=== PATIENT | male | born 1945 | race Caucasian/White ===

== ENCOUNTER 2017-11-04 17:25 | Inpatient (IN) ==
[2017-11-04] MEDS ORDERED: Naloxone 0.4 MG/ML INJ IVP PRN (22:35)
[2017-11-04] MEDS ORDERED: *HR* HYDROcodone/Acet 5/325 mg TABLET PO PRN (22:41)
[2017-11-04] MEDS ORDERED: Acetaminophen 325 MG TABLET PO PRN (22:41)
[2017-11-04] MEDS ORDERED: hydrALAZINE 10 MG TABLET PO PRN (22:48)
[2017-11-04] MEDS ORDERED: Ipratropium/Albuterol Neb 3 ML IH PRN (22:50)
--- NOTE | 2017-11-04 23:09 | Internal Med History&Physical ---
<Parag Carrion - Last Filed: 11/05/17 03:41> Date of Encounter: 11/05/17 Time of Encounter: 22:00 Assessment and Plan (1) Sick sinus syndrome Status: Acute Transferred from [place] for further management. ECG shows sinus bradycardia with frequent PACs. No ST changes or wide QRS. Patient does have intermittent symptoms including chest pressure, shortness of breath, lightheadedness [place] records show: - Negative troponins. CBC and BMP unremarkable. Mag normal. - Echo: LVH, normal EF, pumonary HTN - Stress: negative for ischemia, EF 52% - Carotid U/S (05/2017): right ICA 0-49% stenosis, complete unchanged left ICA, and bilateral external carotid arteries 50% - Previous attempt with an event monitor, however the electrode leads would not remain on Currently the patient is normotensive, will place on hydralazine when necessary if his blood pressure increases We will avoid any AV laurel blockers as this could worsen his bradycardia Continue aspirin and statin We will consult cardiology for further evaluation and management Discussed CODE STATUS with the patient, and he reports that he would not want CPR if needed. However, he would want intubation in the acute setting, but would not want to be vent dependent. CODE STATUS is DNR-CCA (2) Numbness in both legs Status: Acute Patient reports bilateral numbness in his legs from the mid-wayne down. He states this has been present for several years. And that he had to re-teach himself how to walk. He reports that he and a neurology evaluation or workup at the [place] in the past, but is unsure the exact etiology of his numbness. He denies being diabetic. There is a mention of possible Parkinson's disease. Neuro exam is nonfocal, and strength is equal and symmetric in all extremities. The only abnormal findings are numbness and a slow gait. We will obtain A1c, B12, and folate. Even with previous work-up, we will consult neurology for evaluation to see if there is anything else that could be done. (3) COPD (chronic obstructive pulmonary disease) Status: Acute Patient with long-standing smoking history. History of COPD, does not appear to be in acute exacerbation. Pulse ox 97 on room air. Denies current dyspnea. We will provide DuoNeb as needed. Qualifiers: COPD type: unspecified COPD Qualified Code(s): J44.9 - Chronic obstructive pulmonary disease, unspecified (4) Hyperlipidemia Status: Acute Continue statin. Check lipid panel Qualifiers: Hyperlipidemia type: unspecified Qualified Code(s): E78.5 - Hyperlipidemia , unspecified (5) DVT prophylaxis Status: Acute Subcutaneous heparin Internal Medicine - H&P: HPI Chief complaint: Irregular HR Admitted From: Hospital to Hospital Transfer History of present illness: Mr. Winn is a 72 year old male with PMH of aortic stenosis, COPD, spinal stenosis, and memory loss, is being transferred to [facility] from the [place] for further management of tachycardia/bradycardia syndrome. The patient reports that 3 days ago he had pressure like non-radiating left-sided chest pain that has now resolved. He states the pain came on when he was getting out of bed that morning. Associated symptoms at that time included left arm numbness, dyspnea, lightheadedness, and unsteady gait. He states that his pain lasted about 20 minutes and then resolved on its own. He states that in the past he has had some exertional chest pressure, previously was prescribed nitroglycerin however he has not taken this. He reports that intermittently he will get lightheadedness and unsteady gait without chest pressure. Denies syncope, fatigue, palpitations, diaphoresis, or nausea/vomiting. A home health RN was present during this episode, and told him that his blood pressure was low. She then had him evaluated at the [place]. He was then admitted to the [place] hospital. It appears that an echo was done with normal EF, LVH, and pulmonary HTN. Stress test showed no ischemia. He states that he did have one episode of chest pain while at the hospital. He was transferred here for further care. He denies being on any antihypertensives or rate control medications in the past. He does report that he is a current every day smoker for approximately the last 65 years. Upon review of systems he does state that his vision is blurry at times, but corrected with glasses. He also has bilateral lower extremity numbness from the mid wayne down to his feet. The symptoms are unchanged. He denies fevers, chills, falls, cough, nausea, vomiting, abdominal pain, change in bowels, hematochezia, melena, dysuria, hematuria, or leg pain/swelling. Past Med Surg Social Fam HX - Past Medical History Psychiatric history: PTSD - Past Surgical History Surgical History: herniorrhaphy - Social History Smoking Status: Current every day smoker Packs per day: 1 Smokeless Tobacco Status: No Alcohol use: none Drug use: none Internal Medicine - H&P: Meds 3 Allergy/AdvReac Type Severity Reaction Status Date / Time morphine AdvReac Confusion Verified 11/05/17 10:02 All Systems PM: A 10-system review of systems was performed and is negative for pertinent findings except as documented above in the HPI. - Constitutional Vitals: Temp Pulse Resp BP Pulse Ox 97.8 F 66 18 119/68 97 11/04/17 19:25 11/04/17 19:25 11/04/17 19:25 11/04/17 19:25 11/04/17 19:25 General appearance: Present: A&O X 3, no acute distress, answers questions appropriately - Head Head exam: Present: atraumatic, normocephalic - Eye Eye exam: Present: EOMI, PERRL, conjuntiva pink, sclera anicteric - Neck Neck exam general surgery: Present: supple, trachea midline. Absent: lymphadenopathy - Respiratory Respiratory exam: Present: decreased breath sounds. Absent: accessory muscle use, rales, rhonchi, wheezes - Cardiovascular Cardiovascular exam: Present: irregular rhythm, +S1, +S2, systolic murmur. Absent: diastolic murmur - GI/Abdominal GI/Abdominal exam: Present: normal bowel sounds, soft, no peritoneal signs. Absent: distended, tenderness - Extremities Exam Extremities exam: Present: warm, radial pulses palpable and symmetrical. Absent : calf tenderness, cyanotic, pedal edema - Neurological Exam Neurological exam: Present: CN II-XII intact, motor sensory deficit (Bilateral numbness in LE below mid-wayne), oriented X3, no focal deficits. Absent: facial droop, speech deficit - Skin Skin exam: Present: dry, intact <Sulma Garcia Z - Last Filed: 11/25/17 10:18> Date of Encounter: 11/25/17 Internal Medicine - H&P: HPI History of present illness: Mr. Winn is a 72 year old male All Systems PM: A 10-system review of systems was performed and is negative for pertinent findings except as documented above in the HPI. - Constitutional Vitals: Temp Pulse Resp BP Pulse Ox 98.1 F 57 18 112/66 95 11/05/17 16:43 11/05/17 16:43 11/05/17 16:43 11/05/17 16:43 11/05/17 16:43 Internal Med - H&P Results - Labs CBC & Chem 7: 11/05/17 03:31 11/05/17 03:31 - Attending Attestation I personally and independently interviewed and examined the patient, and I reviewed the patient's medical record. I am in agreement with the residents assessment and proposed treatment plan. I discussed my findings and recommendation with the patient and answer his questions. The patient's medical records were edited to accurately reflect this encounter.
[2017-11-05 04:08] LABS: Basophils % 0.5 %; Eosinophils # 0.2 K/mcL (0.0-0.6); Eosinophils % 2.4 %; Hematocrit 38.8 % (37.5-50.1); Hemoglobin 13.3 g/dL (12.9-16.9); Immature Granulocytes % 0.3 % (0-4); Lymphocytes # 2.2 K/mcL (0.6-4.6); Lymphocytes % 34.9 %; Mean Corpuscular HGB Conc 34.3 g/dL (31.6-35.5); Mean Corpuscular Hemoglobin 31.7 pg (28.0-33.3); Mean Corpuscular Volume 92.4 fL (83.0-100.0); Mean Platelet Volume 9.7 fL (9.4-12.4); Monocytes # 0.6 K/mcL (0.0-1.3); Monocytes % 9.4 %; Neutrophils # 3.3 K/mcL (1.6-8.9); Platelet Count 287 K/mcL (140-400); Red Cell Distribution Width 13.2 % (11.5-14.5); Segmented Neutrophils % 52.5 %
[2017-11-05 04:16] LABS: Prothrombin Time 10.5 Seconds (9.4-12.1)
[2017-11-05 04:19] LABS: Activated Partial Thrombo Time 33.2 Seconds (26.0-36.0)
[2017-11-05 04:36] LABS: Alanine Aminotransferase 39 Units/L (7-52); Albumin 4.2 g/dL (3.5-5.7); Albumin/Globulin Ratio 1.7 (1.1-2.2); Alkaline Phosphatase 62 Units/L (34-104); Aspartate Amino Transferase 36 Units/L (13-39); BUN/Creatinine Ratio 19 (6-26); Bilirubin,Total 0.5 mg/dL (0.3-1.0); Blood Urea Nitrogen 19 mg/dL (8-23); Calcium 9.3 mg/dL (8.6-10.3); Carbon Dioxide 23 mEq/L (23-29); Chloride 107 mEq/L (98-107); Chol/HDL Ratio 3.3 (0-4.9); Cholesterol 184 mg/dL (< 200); Globulin 2.5 g/dL (2.4-3.5); Glucose 105 mg/dL (70-105); HDL Cholesterol 55 mg/dL (40-59); LDL Cholesterol,Calculated 102 mg/dL (0-99); Magnesium 2.1 mg/dL (1.6-2.6); Osmolality,Calculated 287 (280-300); Potassium 3.7 mEq/L (3.5-5.1); Sodium 137 mEq/L (136-145); Total Protein 6.7 g/dL (6.4-8.9); Triglycerides 137 mg/dL (< 150); eGFR For African Americans > 60 (> 60); eGFR For Non-African Americans > 60 (> 60)
[2017-11-05] MEDS ORDERED: *HR* Heparin 5,000 UNIT/ML VIAL SQ SCH (06:00)
[2017-11-05 07:30] LABS: Folate 10.6 ng/mL (3.0-16.0)
[2017-11-05] MEDS ORDERED: Aspirin Enteric Coated 81 MG Tablet PO SCH (09:00)
[2017-11-05 10:14] LABS: Estimated Average Glucose 105 mg/dl; Hemoglobin A1C 5.3 %
[2017-11-05] MEDS ORDERED: Metoprolol XL (24 HR) Succ 25 MG TAB.ER.24H PO SCH (11:15)
--- NOTE | 2017-11-05 12:07 | Cardiology Consult Note ---
<Saud Francis - Last Filed: 11/05/17 12:05> Date of Encounter: 11/05/17 Time of Encounter: 12:05 Assessment and Plan (1) Tachy-jose g syndrome Current Visit: Yes Status: Acute Per Cardiology: [place] holter monitor reviewed. Dates, 10/20/17-10/26/17. There was underlying normal sinus rhythm. Avg HR 79 bpm. Min HR 35 bpm at 1:02 am, maximum HR was 235 BPM. Reported to have 5 possible episodes of AV block. Rhythm strips reviewed with Dr. Franco. Rhythm is SR with blocked PAC. Possible second degree type II AV block (total 14 seconds). SVT with longest being 19 beats seen. Maximum HR was 7 beat SVT at 235 bpm. Patient triggered events correlate with NSR to atrial tachycardia. Frequent PAC are noted. Cardiac work-up at the [place] was reviewed. EKG shows SR with PAC, HR 69 bpm. Pharmacologic nuclear stress test was negative for ischemia. TTE showed preserved EF. Troponin negative x2. Telemetry during this hospital stay shows avg HR 71 bpm. No bradycardias, heart block, or pauses seen. No tachycardia seen. Noted to have frequent PAC. Recommend to continue toprol XL 25 mg daily. No indication for PPM at this time. Will set up patient to have out-pt EP follow up. (2) Chest pain Current Visit: Yes Status: Acute Work-up for chest pain at [facility] showed no concerning findings. Troponin negative. EKG shows no acute ST changes. Stress test was negative for ischemia or infarct. TTE showed preserved EF. Now pain free. No further cardiac work-up at this time. Qualifiers: Chest pain type: unspecified Qualified Code(s): R07.9 - Chest pain, unspecified Discussion w patient/family: The assessment and plan as outlined above was discussed with the patient and/or family members who expressed understanding and agreement. All questions were answered. Thank you for involving us in the care of your patient. Please call with any questions. History of Present Illness Consult date: 11/05/17 Requesting physician: Parag Carrion Consult reason: tachy-jose g syndrome Chief complaint: Chest pain History of present illness: Mr. Winn is a 72 year old male with past medical history of COPD, spinal stenosis, aortic sclerosis, and memory loss. He presented from the [place] for concern for tachy-jose g syndrome on Holter. He initially presented to the [facility] with chest pain and low blood pressure reported by his home health nurse. Admits to intermittent lighheadedness with activity. Recently had a out patient one week monitor ordered by his PCP for bradycardia. While at the [facility] chest pain work-up included troponin negative x2. Pharmacologic stress test was negative, Gated EF 52%. TTE completed showed preserved EF. Mild LVH. He was transferred to [facility] after Holter monitor was reported for concern for tachy-jose g syndrome. Past Med Surg Social Fam HX - Past Medical History Medical history: COPD, dementia Psychiatric history: PTSD - Past Surgical History Surgical History: herniorrhaphy - Social History Smoking Status: Current every day smoker Packs per day: 1 Smokeless Tobacco Status: No Alcohol use: none Drug use: none Medications and Allergies Albuterol Sulfate [Proair Hfa] 2 puff IH Q4H PRN 11/05/17 [History] Aspirin [Lo-Dose Aspirin EC] 81 mg PO DAILY 11/05/17 [History] Atorvastatin [Lipitor] 40 mg PO HS 11/05/17 [History] Baclofen [Lioresal] 10 mg PO TID 11/05/17 [History] Chlorhexidine Rinse 15 ml MM BID 11/05/17 [History] Enoxaparin [Lovenox] 40 mg SQ DAILY 11/05/17 [History] Gabapentin [Neurontin] 300 mg PO HS 11/05/17 [History] Ipratropium [place] 2 spr NS QID 11/05/17 [History] Memantine [Namenda] 5 mg PO BID 11/05/17 [History] Metoprolol Succinate [Toprol Xl] 12.5 mg PO DAILY 11/05/17 [History] Sertraline [Zoloft] 50 mg PO DAILY 11/05/17 [History] Tiotropium [Spiriva] 1 puff IH DAILY 11/05/17 [History] 3 Allergy/AdvReac Type Severity Reaction Status Date / Time morphine AdvReac Confusion Verified 11/05/17 10:02 All Systems Review: The remainder of the systems were reviewed and are negative Physical Examination Vital Signs, Last 4 Hours Temp Pulse Resp BP Pulse Ox 11/05/17 11:46 98.8 F 72 18 127/77 96 11/05/17 09:26 94 General: Conversant, No Apparent Distress, Other (poor historian) HEENT: Atraumatic, Normocephaly, Mucus Membranes Moist Neck: No JVD, Normal carotid pulses Cardiac: Reg Rate and Rhythm, Normal S1 and S2, No Murmur Lungs: Normal Breath Sounds, No Wheeze, Rales, Rhonchi Neuro: Alert and responsive, No focal deficits noted Abdomen: Soft, Non-Tender Skin: No rashes noted on visualized skin Musculoskeletal: No Chest Wall Tenderness Extremities: No Clubbing, No Cyanosis, No Edema, Normal Pulses Results 11/05/17 03:31 11/05/17 03:31 Lab Results 11/05/17 11/05/17 11/05/17 03:31 03:31 03:31 WBC 6.3 Hgb 13.3 Hct 38.8 Plt Count 287 INR 1.0 APTT 33.2 Sodium 137 Potassium 3.7 Chloride 107 Carbon Dioxide 23 BUN 19 Creatinine 0.99 Glucose 105 Calcium 9.3 Magnesium 2.1 Total Bilirubin 0.5 AST 36 ALT 39 Alkaline Phosphatase 62 TSH 11/05/17 03:31 WBC Hgb Hct Plt Count INR APTT Sodium Potassium Chloride Carbon Dioxide BUN Creatinine Glucose Calcium Magnesium Total Bilirubin AST ALT Alkaline Phosphatase TSH 2.363 - Imaging and Cardiology Stress Test: report reviewed Echo: other ([facility] report per [facility] HPI) - EKG Interpretation EKG results cardiology: personally reviewed Consult Discharge Plan - Plan Referrals: [facility],PCP [Primary Care Provider] - <Perla Franco - Last Filed: 11/05/17 14:50> Date of Encounter: 11/05/17 - Attending Attestation I examined this patient and my medical decision-making was reviewed with the [employer]OWER [employer] MANAGER. I agree with the documented findings, disposition and treatment plan as described. Mr. Winn presents was sent over from the [place] for concern regarding holter monitor results. Patient reports feeling unsteady on his feet and "off balance " which he's had for years without recent worsening. He attributes his symptoms to spinal stenosis, neuropathy and parkinsons. He denies loss of consciousness. He recently had an echo and stress testing at the [place]. Pharmacologic stress testing was negative for ischemia. Echo showed preserved LVEF. Troponin negative. No acute ECG changes. Reviewed the monitoring analyst results, 6 days 1 hour. Rhythm demonstrates PACs , short runs of atrial tachycardia, ectopic atrial rhythm. Also seen are a few episodes of 2:1 AVB. QRS complex is narrow. There were no diary entries. At this time, there is no Class I indication for permanent pacemaker placement. Patient demonstrates narrow QRS episodes of 2:1 AVB without associated symptoms. He had no diary entries on his monitor and reports feeling unsteady on his feet for a long time without recent worsening attributed to alternative causes. Recommend outpatient evaluation with Cardiac Electrophysiology, Dr. Colton Ojeda. Patient instructed to return to ER if symptoms worsen or if syncope develops. Assessment and Plan Discussion w patient/family: The assessment and plan as outlined above was discussed with the patient and/or family members who expressed understanding and agreement. All questions were answered. Thank you for involving us in the care of your patient. Please call with any questions. History of Present Illness History of present illness: Mr. Winn is a 72 year old male All Systems Review: The remainder of the systems were reviewed and are negative Physical Examination Vital Signs, Last 4 Hours Temp Pulse Resp BP Pulse Ox 11/05/17 11:46 98.8 F 72 18 127/77 96 Results 11/05/17 03:31 11/05/17 03:31 Lab Results 11/05/17 11/05/17 11/05/17 03:31 03:31 03:31 WBC 6.3 Hgb 13.3 Hct 38.8 Plt Count 287 INR 1.0 APTT 33.2 Sodium 137 Potassium 3.7 Chloride 107 Carbon Dioxide 23 BUN 19 Creatinine 0.99 Glucose 105 Calcium 9.3 Magnesium 2.1 Total Bilirubin 0.5 AST 36 ALT 39 Alkaline Phosphatase 62 TSH 11/05/17 03:31 WBC Hgb Hct Plt Count INR APTT Sodium Potassium Chloride Carbon Dioxide BUN Creatinine Glucose Calcium Magnesium Total Bilirubin AST ALT Alkaline Phosphatase TSH 2.363
--- NOTE | 2017-11-05 16:21 | Discharge Summary ---
- NOTES TO OUTPATIENT PROVIDER Notes to Outpatient Provider: Follow up with PCP in 2-3 days after discharge. Follow up with cardiology/electrophysiology as directed. Date of Encounter: 11/05/17 Time of Encounter: 16:14 - Discharge Diagnosis (1) Chest pain Priority: Primary Status: Resolved Qualifiers: Chest pain type: unspecified Qualified Code(s): R07.9 - Chest pain, unspecified (2) Tachy-jose g syndrome Priority: Secondary Status: Acute (3) Sick sinus syndrome Priority: Secondary Status: Acute (4) Numbness in both legs Priority: Secondary Status: Chronic (5) COPD (chronic obstructive pulmonary disease) Priority: Secondary Status: Chronic Qualifiers: COPD type: unspecified COPD Qualified Code(s): J44.9 - Chronic obstructive pulmonary disease, unspecified (6) Hyperlipidemia Priority: Secondary Status: Chronic Qualifiers: Hyperlipidemia type: unspecified Qualified Code(s): E78.5 - Hyperlipidemia , unspecified (7) DVT prophylaxis Priority: Secondary Status: Acute Hospital course: Mr. Winn is a 72 year old male admitted as transfer from [facility] for sick sinus/tachy-jose g syndrome. He was admitted to general medical floor with telemetry. EKG showed bradycardia with frequent PACs. Cardiology was consulted. He had no symptoms of chest pressure, shortness of breath, or lightheadedness since admission. Home BP medications, except metoprolol, were continued. Aspirin and statin were continued. Cardiology reviewed all his records. I spoke with Dr. Franco lapel stitcher about the patient's condition. She recommended that he continue toprol XL. There was no indication for PPM at this time. He can follow up with electrophysiology as outpatient. He has no complaints today. He states that BLE numbness is a chronic issuue for him. He is not interested in seeing a neurologist and wants to go home. Patient will follow up with PCP in 2-3 days after discharge. He will follow up with electrophysiology as directed. Patient has met maximum benefit of this hospitalization and will be discharged home in stable condition. Discharge discussed with: patient, nurse - Time Spent with Patient Total time spent providing and/or coordinating discharge services: Greater than 30 minutes - Discharge Medications Home Medications: Albuterol Sulfate [Proair Hfa] 2 puff IH Q4H PRN 11/05/17 [History] Aspirin [Lo-Dose Aspirin EC] 81 mg PO DAILY 11/05/17 [History] Atorvastatin [Lipitor] 40 mg PO HS 11/05/17 [History] Baclofen [Lioresal] 10 mg PO TID 11/05/17 [History] Chlorhexidine Rinse 15 ml MM BID 11/05/17 [History] Enoxaparin [Lovenox] 40 mg SQ DAILY 11/05/17 [History] Gabapentin [Neurontin] 300 mg PO HS 11/05/17 [History] Ipratropium [place] 2 spr NS QID 11/05/17 [History] Memantine [Namenda] 5 mg PO BID 11/05/17 [History] Metoprolol Succinate [Toprol Xl] 12.5 mg PO DAILY 11/05/17 [History] Sertraline [Zoloft] 50 mg PO DAILY 11/05/17 [History] Tiotropium [Spiriva] 1 puff IH DAILY 11/05/17 [History] Allergies/Adverse Reactions: 3 Allergy/AdvReac Type Severity Reaction Status Date / Time morphine AdvReac Confusion Verified 11/05/17 10:02 Date of admission: 11/05/17 11:58 Primary care physician: PCP [place] Consults: 11/05/17 02:04 Consult to Cardiology [CONS] Routine Comment: Consulting Provider: Cardiology Dorothy Reason for Consult: Transfer to [facility] from [place] for sick sinus syndrome. Work- up at [place] included Echo with LVH/normal EF and Stress test without evidence of ischemia Call Completed: No 11/05/17 03:35 Consult to Neurology [CONS] Routine Consulting Provider: Neurology [facility] Reason for Consult: Pt has bilateral numbness in lower extremity from mid- wayne down and difficulty with gait. He reports that he had to re-teach himself to walk. This has been present for several years and he reports he had a previous work-up at the [place]. No acute changes. Order placed to obtain records. We would appreciate another neuro evaluation. Call Completed: No Discharging clinician: Kristofer Goodrich Anticipated date of discharge: 11/05/17 - Constitutional Vitals: Temp Pulse Resp BP Pulse Ox 98.8 F 72 18 127/77 96 11/05/17 11:46 11/05/17 11:46 11/05/17 11:46 11/05/17 11:46 11/05/17 11:46 General appearance: Present: cooperative, A&O X 3, pleasant, no acute distress, answers questions appropriately - Respiratory Respiratory exam: Present: CTAB. Absent: accessory muscle use, rales, rhonchi, wheezes Additional comments: Normal WOB - Cardiovascular Cardiovascular exam: Present: RRR, +S1, +S2. Absent: diastolic murmur, gallop, rubs, systolic murmur Additional comments: No BLE edema - GI/Abdominal GI/Abdominal exam: Present: normal bowel sounds, soft. Absent: distended, hepatomegaly, mass, splenomegaly, tenderness - Psychiatric Psychiatric exam: Present: normal affect, normal mood. Absent: anxious, depressed - Skin Skin exam: Present: dry, intact, warm. Absent: cyanosis, rash - Patient Status Disposition: Home, Self-Care Condition: Good Overall status at discharge: patient is back to baseline - Discharge Instructions Follow [facility] With: [facility] [Primary Care Provider] - Additional Instructions: Follow up with PCP in 2-3 days after discharge. Follow up with cardiology/ electrophysiology as directed. - Diet and Activity Activity: resume usual activities as tolerated Diet: low fat, low cholesterol, low salt diet, other (Cardiac)
--- NOTE | 2017-11-05 16:31 | Neurology - Consult Note ---
Date of Encounter: 11/05/17 Time of Encounter: 16:28 Assessment and Plan (1) Essential tremor Current Visit: Yes Status: Acute I am not convinced that this gentleman has Parkinson's disease. He is currently not on Parkinson's medication. He does not have a resting tremor, he does not have bradykinesia or masked facies. I believe that he more than likely has essential tremor. He does have essential tremor when holding his arms out in front of him. He also mentions that his sister tremors as well. (2) Numbness in both legs Current Visit: Yes Status: Chronic Motor likely this gentleman is leg numbness is due to sensorimotor polyneuropathy. Etiology however the neuropathy is unknown. He states it is been present for quite some time. He does have impairment of proprioception distally. He also seems to have a tad bit of weakness distally. However further workup for characterization of the neuropathy would best be completed as an outpatient. Many individuals with restless leg syndrome actually have underlying neuropathy. His symptoms of achiness of his legs at night certainly seem to be consistent with restless leg syndrome. Again I can evaluate for this as an outpatient in my office if he so desires. I might recommend Requip 0.25 mg at bedtime to help with the symptoms. Otherwise I see no acute neurologic problem that mandates continued hospitalization at this point. History of Present Illness HPI: Mr. Winn is a 72 year old male who was admitted secondary to shortness of breath chest pressure lightheadedness attributed to sick sinus syndrome. However is being seen for neurologic consultation secondary to chronic bilateral numbness in both legs. He states this is been present for several years. He also states that he is been previously seen and evaluated by neurology for this problem. Apparently he was told that he has Parkinson's disease. He states that he does not tremors much as he used to. He denies any history of diabetes mellitus also noticed that his legs "jump" at night. He denies any recent falls he walks with a cane and sometimes with a walker. He denies any leg pain other than at night. Apparently he is not on any medications Parkinson's disease. He does mention that his sister tremors as well. Past Med Surg Social Fam HX - Past Medical History Medical history: COPD, dementia Psychiatric history: PTSD - Past Surgical History Surgical History: herniorrhaphy - Social History Smoking Status: Current every day smoker Packs per day: 1 Smokeless Tobacco Status: No Alcohol use: none Drug use: none Medications and Allergies Albuterol Sulfate [Proair Hfa] 2 puff IH Q4H PRN 11/05/17 [History] Aspirin [Lo-Dose Aspirin EC] 81 mg PO DAILY 11/05/17 [History] Atorvastatin [Lipitor] 40 mg PO HS 11/05/17 [History] Baclofen [Lioresal] 10 mg PO TID 11/05/17 [History] Chlorhexidine Rinse 15 ml MM BID 11/05/17 [History] Enoxaparin [Lovenox] 40 mg SQ DAILY 11/05/17 [History] Gabapentin [Neurontin] 300 mg PO HS 11/05/17 [History] Ipratropium [place] 2 spr NS QID 11/05/17 [History] Memantine [Namenda] 5 mg PO BID 11/05/17 [History] Metoprolol Succinate [Toprol Xl] 12.5 mg PO DAILY 11/05/17 [History] Sertraline [Zoloft] 50 mg PO DAILY 11/05/17 [History] Tiotropium [Spiriva] 1 puff IH DAILY 11/05/17 [History] 3 Allergy/AdvReac Type Severity Reaction Status Date / Time morphine AdvReac Confusion Verified 11/05/17 10:02 All Systems: The remainder of the systems were reviewed and are negative Review of Systems: 10 point review of systems is consistent with a history of present illness and otherwise negative. Physical Examination - Vital Signs Vital Signs: Initial Vital Signs Temp Pulse Resp BP Pulse Ox 97.8 F 66 18 119/68 97 11/04/17 19:25 11/04/17 19:25 11/04/17 19:25 11/04/17 19:25 11/04/17 19:25 - Neurologic Detailed motor examination: other (He does have a slight intention tremor of both upper extremities. He has good strength of the upper and lower extremities with the exception of slight distal weakness in the dorsiflexors of the feet.) Detailed sensory examination: other (Decreased sensation in the small joints distally, decreased proprioception of the feet.) Reflex and gait examination: other (Deep tendon reflexes are absent throughout.) Reflexes: Biceps: 0, Triceps: 0, Brachioradialis: 0, Patella: 0, Achilles: 0 Mental Status Examination: awake, alert, oriented to person, oriented to place, oriented to time, answers questions appropriately Cranial nerve examination: PERRL, EOMI, visual gomez intact, corneal reflexes brisk symmetrically, sensory to face intact, mastication intact, no facial asymmetry is present, no dysarthria, hearing is intact symmetrically, soft palate elevates bilaterally upon phonation, gag reflex intact, flexes SCM and trapezius muscles symmetrically with full power, tongue protrudes midline, no atrophy or facial fasiculations present Results - Laboratory Findings CBC and BMP: 18 03:31 18 03:31 Abnormal lab findings: Abnormal lab results LDL Cholesterol, Calc 102 mg/dL (0-99) H 11/05/17 03:31 Consult Discharge Plan - Plan Additional Instructions: Follow up with PCP in 2-3 days after discharge. Follow up with cardiology/ electrophysiology as directed. Referrals: [facility] [Primary Care Provider] -
[2017-11-05 16:46] VITALS: BP 112/66
--- NOTE | 2017-11-06 16:01 | Electrocardiograph Report ---
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
== END 2017-11-05 19:50 | disposition home or self-care (01) | DRG 310 ==
LOC: 3NENU
PROVIDERS: ADMIT Hospitalist; ATTEND Student in an Organized Health Care Education/Training Program

== ENCOUNTER 2020-08-29 12:13 | Observation (INO) ==
[2020-08-29] MEDS ORDERED: Mag Hydrox/Al Hydrox/Simeth 30 ML UDC PO STA (12:52)
[2020-08-29] MEDS ORDERED: Aspirin 325 MG TABLET PO ONE (12:53)
[2020-08-29 13:03] LABS: Basophils % 0.6 %; Eosinophils # 0.1 K/mcL (0.0-0.6); Eosinophils % 1.9 %; Hemoglobin 13.4 g/dL (12.9-16.9); Immature Granulocytes % 0.6 % (0-4); Lymphocytes # 1.5 K/mcL (0.6-4.6); Lymphocytes % 20.9 %; Mean Corpuscular HGB Conc 32.7 g/dL (31.6-35.5); Mean Corpuscular Hemoglobin 30.9 pg (28.0-33.3); Mean Corpuscular Volume 94.7 fL (83.0-100.0); Mean Platelet Volume 9.5 fL (9.4-12.4); Monocytes # 0.9 K/mcL (0.0-1.3); Monocytes % 11.8 %; Neutrophils # 4.6 K/mcL (1.6-8.9); Platelet Count 299 K/mcL (140-400); Red Blood Count 4.33 M/mcL (4.19-5.50); Red Cell Distribution Width 13.5 % (11.5-14.5); Segmented Neutrophils % 64.2 %; White Blood Count 7.2 K/mcL (4.3-11.1)
[2020-08-29 13:33] LABS: BUN/Creatinine Ratio 18 (6-26); Blood Urea Nitrogen 19 mg/dL (8-23); Calcium 9.5 mg/dL (8.6-10.3); Carbon Dioxide 23 mEq/L (23-29); Chloride 105 mEq/L (98-107); Glucose 88 mg/dL (70-105); Osmolality,Calculated 292 (280-300); Sodium 140 mEq/L (136-145); eGFR For African Americans > 60 (> 60); eGFR For Non-African Americans > 60 (> 60)
[2020-08-29 13:53] LABS: Troponin I < 0.03 ng/mL (< 0.04)
[2020-08-29] MEDS ORDERED: Perflutren Lipid Microsphere 1.3 ML in 0.9 % Sodium Chloride 8.7 ML IVP PRN (15:22)
[2020-08-29] MEDS ORDERED: Acetaminophen 325 MG TABLET PO PRN (15:23)
[2020-08-29] MEDS ORDERED: Ondansetron 4 MG/2 ML VIAL IVP PRN (15:23)
[2020-08-29] MEDS ORDERED: Naloxone 0.4 MG/ML INJ IVP PRN (15:23)
[2020-08-29] MEDS ORDERED: Nitroglycerin 0.4 MG TAB.SUBL SL PRN (15:27)
[2020-08-29] MEDS: *HR* Heparin 5,000 UNIT/ML VIAL SQ SCH (17:30)
[2020-08-29 18:13] LABS: Prothrombin Time 11.8 Seconds (9.4-12.1)
[2020-08-29] MEDS: rOPINIRole 0.25 MG TABLET PO PRN (19:44)
[2020-08-29] MEDS: Ipratropium 1 PUFF INHALER IH SCH (22:14)
[2020-08-30 00:34] LABS: Hematocrit 35.6 % (37.5-50.1); Mean Corpuscular HGB Conc 33.1 g/dL (31.6-35.5); Mean Corpuscular Hemoglobin 31.2 pg (28.0-33.3); Mean Corpuscular Volume 94.2 fL (83.0-100.0); Mean Platelet Volume 9.3 fL (9.4-12.4); Platelet Count 225 K/mcL (140-400); Red Blood Count 3.78 M/mcL (4.19-5.50); Red Cell Distribution Width 13.5 % (11.5-14.5); White Blood Count 4.7 K/mcL (4.3-11.1)
[2020-08-30 00:35] LABS: Hemoglobin 11.8 g/dL (12.9-16.9)
[2020-08-30 00:51] LABS: BUN/Creatinine Ratio 22 (6-26); Blood Urea Nitrogen 21 mg/dL (8-23); Calcium 9.1 mg/dL (8.6-10.3); Carbon Dioxide 23 mEq/L (23-29); Chloride 108 mEq/L (98-107); Chol/HDL Ratio 4.4 (0-4.9); Cholesterol 201 mg/dL (< 200); Glucose 100 mg/dL (70-105); HDL Cholesterol 46 mg/dL (40-59); LDL Cholesterol,Calculated 122 mg/dL (< 100); Osmolality,Calculated 291 (280-300); Sodium 139 mEq/L (136-145); Triglycerides 167 mg/dL (< 150); eGFR For African Americans > 60 (> 60); eGFR For Non-African Americans > 60 (> 60)
[2020-08-30] MEDS: *HR* Heparin 5,000 UNIT/ML VIAL SQ SCH (05:43)
[2020-08-30] MEDS ORDERED: Regadenoson 0.4 MG/5 ML SYRINGE IVP ONE (06:29)
[2020-08-30] MEDS: Aspirin Enteric Coated 81 MG Tablet PO SCH (10:50)
[2020-08-30] MEDS: Isosorbide MONOnitrate (24 HR) 30 MG TAB.ER.24H PO SCH (10:50)
[2020-08-30] MEDS: Ipratropium 1 PUFF INHALER IH SCH ×2 (11:00→19:46)
[2020-08-30] MEDS: Gentamicin OPTH Soln 5 ML BOTTLE LEFT EYE SCH ×3 (12:17→20:22)
[2020-08-30] MEDS ORDERED: Baclofen 10 MG TABLET PO PRN (13:06)
[2020-08-30] MEDS: Bisacodyl 10 MG RECTAL SUPPOSITORY RC SCH (14:29)
[2020-08-30] MEDS: Metoprolol XL (24 HR) Succ 50 MG TAB.ER.24H PO SCH ×2 (14:29→20:21)
[2020-08-30] MEDS: polyethylene glycoL 3350 17 GM POWD.PACK PO SCH (17:09)
[2020-08-30] MEDS: Artificial Tears SOLN 15 ML BOTTLE BOTH EYES SCH ×2 (17:20→20:21)
[2020-08-30] MEDS: Simethicone 80 MG TAB.CHEW PO SCH ×2 (17:23→20:21)
[2020-08-30] MEDS ORDERED: NON-FORMULARY MEDICATION 1 EACH EACH (Ropinirole Hcl [Requip] 0.5 MG) PO SCH (18:00)
[2020-08-31] MEDS: rOPINIRole 0.25 MG TABLET PO PRN (00:45)
[2020-08-31 04:55] LABS: Basophils % 0.4 %; Eosinophils # 0.1 K/mcL (0.0-0.6); Eosinophils % 2.5 %; Hematocrit 33.5 % (37.5-50.1); Hemoglobin 11.2 g/dL (12.9-16.9); Immature Granulocytes % 0.4 % (0-4); Lymphocytes # 1.8 K/mcL (0.6-4.6); Lymphocytes % 31.6 %; Mean Corpuscular HGB Conc 33.4 g/dL (31.6-35.5); Mean Corpuscular Volume 92.8 fL (83.0-100.0); Mean Platelet Volume 9.3 fL (9.4-12.4); Monocytes # 0.8 K/mcL (0.0-1.3); Monocytes % 13.5 %; Neutrophils # 2.9 K/mcL (1.6-8.9); Platelet Count 241 K/mcL (140-400); Red Blood Count 3.61 M/mcL (4.19-5.50); Red Cell Distribution Width 13.3 % (11.5-14.5); Segmented Neutrophils % 51.6 %; White Blood Count 5.6 K/mcL (4.3-11.1)
[2020-08-31] MEDS: Metoprolol XL (24 HR) Succ 50 MG TAB.ER.24H PO SCH (07:31)
[2020-08-31] MEDS: Simethicone 80 MG TAB.CHEW PO SCH ×4 (07:31→20:16)
[2020-08-31] MEDS: Aspirin Enteric Coated 81 MG Tablet PO SCH (07:32)
[2020-08-31] MEDS: Bisacodyl 10 MG RECTAL SUPPOSITORY RC SCH (07:32)
[2020-08-31] MEDS: Isosorbide MONOnitrate (24 HR) 30 MG TAB.ER.24H PO SCH (07:32)
[2020-08-31] MEDS: polyethylene glycoL 3350 17 GM POWD.PACK PO SCH ×2 (07:32→13:29)
[2020-08-31] MEDS: Gentamicin OPTH Soln 5 ML BOTTLE LEFT EYE SCH ×4 (07:35→20:17)
[2020-08-31] MEDS: Artificial Tears SOLN 15 ML BOTTLE BOTH EYES SCH ×3 (07:36→20:17)
[2020-08-31] MEDS: Ipratropium 1 PUFF INHALER IH SCH ×2 (10:37→19:56)
[2020-08-31] MEDS: Psyllium 1 PACKET POWD.PACK PO SCH ×2 (15:38→20:16)
[2020-08-31] MEDS: Preparation H Ointment 57 GM TUBE TP SCH ×2 (15:39→20:21)
[2020-08-31] MEDS: Metoprolol XL (24 HR) Succ 25 MG TAB.ER.24H PO SCH (20:16)
[2020-09-01] MEDS: Metoprolol XL (24 HR) Succ 25 MG TAB.ER.24H PO SCH (08:10)
[2020-09-01] MEDS: polyethylene glycoL 3350 17 GM POWD.PACK PO SCH (08:10)
[2020-09-01] MEDS: Simethicone 80 MG TAB.CHEW PO SCH (08:10)
[2020-09-01] MEDS: Psyllium 1 PACKET POWD.PACK PO SCH (08:10)
[2020-09-01] MEDS: Preparation H Ointment 57 GM TUBE TP SCH (08:11)
[2020-09-01] MEDS: Isosorbide MONOnitrate (24 HR) 30 MG TAB.ER.24H PO SCH (08:11)
[2020-09-01] MEDS: Artificial Tears SOLN 15 ML BOTTLE BOTH EYES SCH (08:11)
[2020-09-01] MEDS: Aspirin Enteric Coated 81 MG Tablet PO SCH (08:11)
[2020-09-01] MEDS: Gentamicin OPTH Soln 5 ML BOTTLE LEFT EYE SCH (08:11)
[2020-09-01] MEDS: Bisacodyl 10 MG RECTAL SUPPOSITORY RC SCH ×2 (08:11→08:18)
[2020-09-01 09:01] LABS: Basophils % 0.6 %; Eosinophils # 0.2 K/mcL (0.0-0.6); Eosinophils % 2.6 %; Hematocrit 38.8 % (37.5-50.1); Immature Granulocytes % 0.3 % (0-4); Lymphocytes # 2.3 K/mcL (0.6-4.6); Mean Corpuscular HGB Conc 33.2 g/dL (31.6-35.5); Mean Corpuscular Hemoglobin 31.6 pg (28.0-33.3); Mean Corpuscular Volume 95.1 fL (83.0-100.0); Mean Platelet Volume 9.5 fL (9.4-12.4); Monocytes # 0.8 K/mcL (0.0-1.3); Monocytes % 13.1 %; Neutrophils # 3.1 K/mcL (1.6-8.9); Platelet Count 266 K/mcL (140-400); Red Blood Count 4.08 M/mcL (4.19-5.50); Red Cell Distribution Width 13.3 % (11.5-14.5); Segmented Neutrophils % 48.4 %; White Blood Count 6.4 K/mcL (4.3-11.1)
[2020-09-01 09:02] LABS: Hemoglobin 12.9 g/dL (12.9-16.9)
[2020-09-01 11:02] VITALS: BP 110/68
[2020-09-01] MEDS: Ipratropium 1 PUFF INHALER IH SCH (11:26)
== END 2020-09-01 13:30 | disposition home or self-care (01) ==
LOC: 3BNU 12:13 → EMEROOARM 12:13 → SUATTDRO 14:25 → 3BNU 15:22
PROVIDERS: ADMIT Internal Medicine; ATTEND Internal Medicine

== ENCOUNTER 2020-12-26 22:55 | Inpatient (IN) ==
[2020-12-27] MEDS ORDERED: Naloxone 0.4 MG/ML INJ IVP PRN (03:16)
[2020-12-27 07:08] LABS: Bilirubin,Urine Negative (Negative); Blood,Urine Negative (Negative); Clarity,Urine Clear (Clear); Color,Urine Light-Yellow (Yellow); Glucose,Urine (UA) Normal (Normal); Ketones,Urine Negative (Negative); Leukocyte Esterase,Urine Negative (Negative); Nitrite,Urine Negative (Negative); Protein,Urine Negative (Neg-Trace); Specific Gravity,Urine 1.018 (1.010-1.025); Urobilinogen,Urine Normal (Normal)
[2020-12-27 07:11] LABS: Basophils % 0.5 %; Eosinophils # 0.1 K/mcL (0.0-0.6); Eosinophils % 2.2 %; Hematocrit 36.7 % (37.5-50.1); Hemoglobin 12.1 g/dL (12.9-16.9); Immature Granulocytes % 0.3 % (0-4); Lymphocytes # 2.1 K/mcL (0.6-4.6); Lymphocytes % 35.7 %; Mean Corpuscular Hemoglobin 30.7 pg (28.0-33.3); Mean Corpuscular Volume 93.1 fL (83.0-100.0); Mean Platelet Volume 9.4 fL (9.4-12.4); Monocytes # 0.8 K/mcL (0.0-1.3); Monocytes % 14.1 %; Neutrophils # 2.7 K/mcL (1.6-8.9); Platelet Count 307 K/mcL (140-400); Red Blood Count 3.94 M/mcL (4.19-5.50); Red Cell Distribution Width 14.1 % (11.5-14.5); Segmented Neutrophils % 47.2 %; White Blood Count 5.8 K/mcL (4.3-11.1)
[2020-12-27 07:16] LABS: INR 1.1; Prothrombin Time 12.5 Seconds (9.4-12.1)
[2020-12-27 07:19] LABS: Activated Partial Thrombo Time 31.3 Seconds (26.0-36.0)
[2020-12-27 07:33] LABS: Alanine Aminotransferase 11 Units/L (7-52); Albumin 4.1 g/dL (3.5-5.7); Albumin/Globulin Ratio 1.5 (1.1-2.2); Alkaline Phosphatase 55 Units/L (34-104); Aspartate Amino Transferase 13 Units/L (13-39); BUN/Creatinine Ratio 15 (6-26); Bilirubin,Total 0.5 mg/dL (0.3-1.0); Blood Urea Nitrogen 18 mg/dL (8-23); Calcium 9.1 mg/dL (8.6-10.3); Carbon Dioxide 22 mEq/L (23-29); Chloride 109 mEq/L (98-107); Globulin 2.7 g/dL (2.4-3.5); Glucose 113 mg/dL (70-105); Osmolality,Calculated 291 (280-300); Potassium 3.8 mEq/L (3.5-5.1); Sodium 139 mEq/L (136-145); Total Protein 6.8 g/dL (6.4-8.9); eGFR For African Americans > 60 (> 60); eGFR For Non-African Americans 59 (> 60)
[2020-12-27] MEDS ORDERED: *HR* LORazepam 2 MG/ML VIAL IVP ONE (15:58)
[2020-12-27] MEDS: QUEtiapine Fumarate 25 MG TABLET PO PRN (16:41)
[2020-12-27] MEDS: rOPINIRole 1 MG TABLET PO SCH (21:19)
[2020-12-27] MEDS: Metoprolol XL (24 HR) Succ 25 MG TAB.ER.24H PO SCH (21:19)
[2020-12-27] MEDS: [UNRECOGNIZED DRUG - REMARK] OP SCH (23:36)
[2020-12-28 00:50] LABS: Hematocrit 36.4 % (37.5-50.1); Hemoglobin 12.4 g/dL (12.9-16.9); Mean Corpuscular HGB Conc 34.1 g/dL (31.6-35.5); Mean Corpuscular Hemoglobin 31.2 pg (28.0-33.3); Mean Corpuscular Volume 91.5 fL (83.0-100.0); Mean Platelet Volume 9.4 fL (9.4-12.4); Platelet Count 290 K/mcL (140-400); Red Blood Count 3.98 M/mcL (4.19-5.50); Red Cell Distribution Width 13.9 % (11.5-14.5); White Blood Count 5.1 K/mcL (4.3-11.1)
[2020-12-28] MEDS: *HR* Enoxaparin 40 MG/0.4 ML SYRINGE SQ SCH (06:31)
[2020-12-28] MEDS: Aspirin Enteric Coated 81 MG Tablet PO SCH (08:29)
[2020-12-28] MEDS: Metoprolol XL (24 HR) Succ 25 MG TAB.ER.24H PO SCH ×2 (08:29→19:30)
[2020-12-28] MEDS: [UNRECOGNIZED DRUG - REMARK] OP SCH ×2 (08:30→19:30)
[2020-12-28] MEDS: Baclofen 10 MG TABLET PO SCH (08:30)
[2020-12-28] MEDS: QUEtiapine Fumarate 25 MG TABLET PO PRN ×2 (14:55→19:29)
[2020-12-28] MEDS: rOPINIRole 1 MG TABLET PO SCH (19:29)
[2020-12-29] MEDS: *HR* Enoxaparin 40 MG/0.4 ML SYRINGE SQ SCH (05:17)
[2020-12-29] MEDS: Aspirin Enteric Coated 81 MG Tablet PO SCH (07:34)
[2020-12-29] MEDS: Metoprolol XL (24 HR) Succ 25 MG TAB.ER.24H PO SCH ×2 (07:35→20:36)
[2020-12-29] MEDS: [UNRECOGNIZED DRUG - REMARK] OP SCH ×2 (07:35→20:37)
[2020-12-29] MEDS: Baclofen 10 MG TABLET PO SCH (07:35)
[2020-12-29] MEDS: QUEtiapine Fumarate 25 MG TABLET PO PRN ×2 (15:16→20:36)
[2020-12-29] MEDS: rOPINIRole 1 MG TABLET PO SCH (20:36)
[2020-12-30] MEDS: *HR* Enoxaparin 40 MG/0.4 ML SYRINGE SQ SCH (05:23)
[2020-12-30] MEDS: [UNRECOGNIZED DRUG - REMARK] OP SCH (09:12)
[2020-12-30] MEDS: Aspirin Enteric Coated 81 MG Tablet PO SCH (09:20)
[2020-12-30] MEDS: Metoprolol XL (24 HR) Succ 25 MG TAB.ER.24H PO SCH ×2 (09:20→20:08)
[2020-12-30] MEDS: Baclofen 10 MG TABLET PO SCH (09:20)
[2020-12-30] MEDS ORDERED: Menthol 1 EACH LOZENGE PO PRN (09:46)
[2020-12-30] MEDS: Sennosides/Docusate Sodium TABLET PO SCH ×2 (13:35→20:07)
[2020-12-30 16:38] LABS: Influenza A PCR Negative (Negative); Influenza B PCR Negative (Negative); Resp. Syncytial Virus PCR Negative (Negative)
[2020-12-30 16:39] LABS: SARS-CoV-2 by PCR (In House) Negative (Negative)
[2020-12-30] MEDS ORDERED: QUEtiapine Fumarate 25 MG TABLET PO PRN (19:10)
[2020-12-30] MEDS: rOPINIRole 1 MG TABLET PO SCH (20:07)
[2020-12-30] MEDS: QUEtiapine Fumarate 25 MG TABLET PO SCH (20:08)
[2020-12-31] MEDS: Artificial Tears SOLN 15 ML BOTTLE BOTH EYES SCH ×5 (05:03→20:21)
[2020-12-31] MEDS: *HR* Enoxaparin 40 MG/0.4 ML SYRINGE SQ SCH (05:03)
[2020-12-31] MEDS: Sennosides/Docusate Sodium TABLET PO SCH ×2 (07:33→20:21)
[2020-12-31] MEDS: Aspirin Enteric Coated 81 MG Tablet PO SCH (07:33)
[2020-12-31] MEDS: Metoprolol XL (24 HR) Succ 25 MG TAB.ER.24H PO SCH ×2 (07:33→20:17)
[2020-12-31] MEDS: Baclofen 10 MG TABLET PO SCH (07:34)
[2020-12-31 15:42] LABS: Influenza A PCR Negative (Negative); Influenza B PCR Negative (Negative); Resp. Syncytial Virus PCR Negative (Negative)
[2020-12-31 15:43] LABS: SARS-CoV-2 by PCR (In House) Negative (Negative)
[2020-12-31] MEDS: QUEtiapine Fumarate 25 MG TABLET PO SCH (20:21)
[2020-12-31] MEDS: rOPINIRole 1 MG TABLET PO SCH (20:21)
[2021-01-01] MEDS: *HR* Enoxaparin 40 MG/0.4 ML SYRINGE SQ SCH (04:58)
[2021-01-01] MEDS: Metoprolol XL (24 HR) Succ 25 MG TAB.ER.24H PO SCH ×2 (08:36→20:42)
[2021-01-01] MEDS: Baclofen 10 MG TABLET PO SCH (08:36)
[2021-01-01] MEDS: Aspirin Enteric Coated 81 MG Tablet PO SCH (08:36)
[2021-01-01] MEDS: Sennosides/Docusate Sodium TABLET PO SCH ×2 (08:36→20:42)
[2021-01-01] MEDS: Artificial Tears SOLN 15 ML BOTTLE BOTH EYES SCH ×4 (08:36→20:48)
[2021-01-01] MEDS: rOPINIRole 1 MG TABLET PO SCH (20:42)
[2021-01-01] MEDS: QUEtiapine Fumarate 25 MG TABLET PO SCH (20:42)
[2021-01-02 03:39] LABS: Folate 9.4 ng/mL (3.0-16.0)
[2021-01-02] MEDS: *HR* Enoxaparin 40 MG/0.4 ML SYRINGE SQ SCH (05:38)
[2021-01-02 06:57] LABS: Hematocrit 36.8 % (37.5-50.1); Hemoglobin 12.5 g/dL (12.9-16.9); Mean Corpuscular Hemoglobin 31.3 pg (28.0-33.3); Mean Platelet Volume 9.4 fL (9.4-12.4); Platelet Count 263 K/mcL (140-400); Red Cell Distribution Width 13.9 % (11.5-14.5); White Blood Count 5.4 K/mcL (4.3-11.1)
[2021-01-02] MEDS: Sennosides/Docusate Sodium TABLET PO SCH ×2 (07:10→20:25)
[2021-01-02] MEDS: Metoprolol XL (24 HR) Succ 25 MG TAB.ER.24H PO SCH ×2 (07:11→20:24)
[2021-01-02] MEDS: Artificial Tears SOLN 15 ML BOTTLE BOTH EYES SCH ×4 (07:11→20:25)
[2021-01-02] MEDS: Baclofen 10 MG TABLET PO SCH (07:11)
[2021-01-02] MEDS: Aspirin Enteric Coated 81 MG Tablet PO SCH (07:11)
[2021-01-02 07:48] LABS: % Iron Saturation 24 % (20-55); BUN/Creatinine Ratio 15 (6-26); Blood Urea Nitrogen 17 mg/dL (8-23); Calcium 8.8 mg/dL (8.6-10.3); Carbon Dioxide 23 mEq/L (23-29); Chloride 108 mEq/L (98-107); Ferritin 26 ng/mL (20-250); Glucose 90 mg/dL (70-105); Iron 101 mcg/dL (65-175); Osmolality,Calculated 287 (280-300); Phosphorous 3.7 mg/dL (2.7-4.5); Potassium 4.2 mEq/L (3.5-5.1); Sodium 138 mEq/L (136-145); Transferrin 295 mg/dL (203-362); eGFR For African Americans > 60 (> 60); eGFR For Non-African Americans > 60 (> 60)
[2021-01-02] MEDS ORDERED: Iron Sucrose Complex 400 MG in 0.9 % Sodium Chloride 250 ML IVPB ONE (08:17)
[2021-01-02] MEDS: Multivit/Ca/Min/Fe/FA 1 TAB TABLET PO SCH (09:24)
[2021-01-02] MEDS: Cyanocobalamin (B-12) 1,000 MCG TABLET PO SCH (09:24)
[2021-01-02] MEDS: rOPINIRole 1 MG TABLET PO SCH (20:24)
[2021-01-02] MEDS: QUEtiapine Fumarate 25 MG TABLET PO SCH (20:25)
[2021-01-03] MEDS: *HR* Enoxaparin 40 MG/0.4 ML SYRINGE SQ SCH (05:02)
[2021-01-03] MEDS ORDERED: rOPINIRole 1 MG TABLET PO ONE (05:12)
[2021-01-03] MEDS: Cyanocobalamin (B-12) 1,000 MCG TABLET PO SCH (08:16)
[2021-01-03] MEDS: Baclofen 10 MG TABLET PO SCH (08:16)
[2021-01-03] MEDS: Multivit/Ca/Min/Fe/FA 1 TAB TABLET PO SCH (08:16)
[2021-01-03] MEDS: Metoprolol XL (24 HR) Succ 25 MG TAB.ER.24H PO SCH ×2 (08:16→20:31)
[2021-01-03] MEDS: Sennosides/Docusate Sodium TABLET PO SCH ×2 (08:16→20:30)
[2021-01-03] MEDS: Aspirin Enteric Coated 81 MG Tablet PO SCH (08:16)
[2021-01-03] MEDS: Artificial Tears SOLN 15 ML BOTTLE BOTH EYES SCH ×4 (08:18→20:29)
[2021-01-03] MEDS: rOPINIRole 1 MG TABLET PO SCH (20:30)
[2021-01-03] MEDS: QUEtiapine Fumarate 25 MG TABLET PO SCH (20:30)
[2021-01-04] MEDS: *HR* Enoxaparin 40 MG/0.4 ML SYRINGE SQ SCH (04:23)
[2021-01-04] MEDS: Multivit/Ca/Min/Fe/FA 1 TAB TABLET PO SCH (08:55)
[2021-01-04] MEDS: Aspirin Enteric Coated 81 MG Tablet PO SCH (08:55)
[2021-01-04] MEDS: Metoprolol XL (24 HR) Succ 25 MG TAB.ER.24H PO SCH ×2 (08:55→20:07)
[2021-01-04] MEDS: Cyanocobalamin (B-12) 1,000 MCG TABLET PO SCH (08:55)
[2021-01-04] MEDS: Sennosides/Docusate Sodium TABLET PO SCH ×2 (08:55→20:06)
[2021-01-04] MEDS: Artificial Tears SOLN 15 ML BOTTLE BOTH EYES SCH ×4 (08:56→20:09)
[2021-01-04] MEDS: Baclofen 10 MG TABLET PO SCH (08:56)
[2021-01-04] MEDS: QUEtiapine Fumarate 25 MG TABLET PO SCH (20:08)
[2021-01-04] MEDS: rOPINIRole 1 MG TABLET PO SCH (20:09)
[2021-01-05] MEDS: *HR* Enoxaparin 40 MG/0.4 ML SYRINGE SQ SCH (03:11)
[2021-01-05] MEDS: Multivit/Ca/Min/Fe/FA 1 TAB TABLET PO SCH (07:56)
[2021-01-05] MEDS: Metoprolol XL (24 HR) Succ 25 MG TAB.ER.24H PO SCH ×2 (07:56→20:22)
[2021-01-05] MEDS: Aspirin Enteric Coated 81 MG Tablet PO SCH (07:57)
[2021-01-05] MEDS: Sennosides/Docusate Sodium TABLET PO SCH ×2 (07:57→20:22)
[2021-01-05] MEDS: Cyanocobalamin (B-12) 1,000 MCG TABLET PO SCH (07:57)
[2021-01-05] MEDS: Baclofen 10 MG TABLET PO SCH (07:57)
[2021-01-05] MEDS: Artificial Tears SOLN 15 ML BOTTLE BOTH EYES SCH ×4 (07:58→20:23)
[2021-01-05] MEDS: rOPINIRole 1 MG TABLET PO SCH (20:22)
[2021-01-05] MEDS: QUEtiapine Fumarate 25 MG TABLET PO SCH (20:23)
[2021-01-06] MEDS: *HR* Enoxaparin 40 MG/0.4 ML SYRINGE SQ SCH (00:21)
[2021-01-06] MEDS: Metoprolol XL (24 HR) Succ 25 MG TAB.ER.24H PO SCH ×2 (07:31→19:54)
[2021-01-06] MEDS: Cyanocobalamin (B-12) 1,000 MCG TABLET PO SCH (07:31)
[2021-01-06] MEDS: Sennosides/Docusate Sodium TABLET PO SCH ×2 (07:31→19:54)
[2021-01-06] MEDS: Aspirin Enteric Coated 81 MG Tablet PO SCH (07:32)
[2021-01-06] MEDS: Multivit/Ca/Min/Fe/FA 1 TAB TABLET PO SCH (07:32)
[2021-01-06] MEDS: Baclofen 10 MG TABLET PO SCH (07:32)
[2021-01-06] MEDS: Artificial Tears SOLN 15 ML BOTTLE BOTH EYES SCH ×4 (09:35→19:56)
[2021-01-06] MEDS: QUEtiapine Fumarate 25 MG TABLET PO SCH (19:54)
[2021-01-06] MEDS: rOPINIRole 1 MG TABLET PO SCH (19:56)
[2021-01-07] MEDS: *HR* Enoxaparin 40 MG/0.4 ML SYRINGE SQ SCH (02:19)
[2021-01-07] MEDS: Multivit/Ca/Min/Fe/FA 1 TAB TABLET PO SCH (07:39)
[2021-01-07] MEDS: Aspirin Enteric Coated 81 MG Tablet PO SCH (07:39)
[2021-01-07] MEDS: Sennosides/Docusate Sodium TABLET PO SCH (07:39)
[2021-01-07] MEDS: Metoprolol XL (24 HR) Succ 25 MG TAB.ER.24H PO SCH (07:40)
[2021-01-07] MEDS: Artificial Tears SOLN 15 ML BOTTLE BOTH EYES SCH ×3 (07:40→18:02)
[2021-01-07] MEDS: Cyanocobalamin (B-12) 1,000 MCG TABLET PO SCH (07:40)
[2021-01-07] MEDS: Baclofen 10 MG TABLET PO SCH (07:40)
[2021-01-07 15:00] VITALS: BP 128/83
== END 2021-01-07 19:29 | DRG 885 ==
LOC: 2NENU 22:55 → EMEROOARM 22:55 → SUATTDRO 12-27 01:23 → 2NENU 12-27 02:58 → 3BNU 12-27 21:39 → SUATTDRO 12-28 21:36
PROVIDERS: ADMIT Student in an Organized Health Care Education/Training Program; ATTEND Internal Medicine